=== PATIENT | male | born 1980 | race Caucasian/White ===

== ENCOUNTER 2021-02-25 09:37 | Inpatient (IN) | payer MEDICAID ==
[2021-02-25] VITALS (7 sets, daily range): BP systolic 132–149; BP diastolic 77–105
[~2021-02-25] VITALS: Ht 177.8 cm; Wt 89.8 kg
[2021-02-25] MEDS ORDERED: LORazepam 1 MG TABLET PO ONE (10:00)
[2021-02-25 10:10] LABS: BASOPHILS % (AUTO) 0.5 % (0.0-2.0); EOSINOPHILS % (AUTO) 3.1 % (1.0-6.0); HEMATOCRIT 47.8 % (41-53); HEMOGLOBIN 16.2 g/dL (13.5-17.5); LYMPHOCYTES # (AUTO) 1.9 K/uL (1.0-4.8); LYMPHOCYTES % (AUTO) 21.3 % (22.0-44.0); MEAN CORPUSCULAR HEMOGLOBIN 31.7 pg (26.0-34.0); MEAN CORPUSCULAR VOLUME 93 fL (80-100); MONOCYTES # (AUTO) 0.7 K/uL (0.1-1.0); MONOCYTES % (AUTO) 7.9 % (2.0-9.0); NEUTROPHILS # (AUTO) 6.1 K/uL (1.8-7.7); NEUTROPHILS % (AUTO) 67.2 % (40.0-70.0); PLATELET COUNT (AUTO) 272 K/uL (150-450); RED BLOOD CELL COUNT(AUTO) 5.13 MIL/uL (4.50-5.90); RED CELL DISTRIBUTION WIDTH 14.6 % (11.5-14.5)
[2021-02-25 10:16] LABS: COVID AG,FIA SOURCE NASOPHARYNGEAL
[2021-02-25 10:25] LABS: ANION GAP 13 mmol/L (8-16); CALCIUM, TOTAL 8.9 mg/dL (8.8-10.5); CARBON DIOXIDE 24 mmol/L (22-29); CHLORIDE 104 mmol/L (98-107); CREATININE 0.66 mg/dL (0.60-1.30); GLOMERULAR FILTR. RATE CALC > 60 mL/min (>60); GLUCOSE,RANDOM 115 mg/dL (70-110); POTASSIUM 3.8 mmol/L (3.5-5.1); SODIUM SERUM 141 mmol/L (136-145); UREA NITROGEN, BLOOD 7 mg/dL (7-18)
[2021-02-25 10:31] LABS: ALBUMIN 3.8 g/dL (3.4-5.0); ASPARTATE AMINOTRANSFERASE 44 U/L (15-37); BILIRUBIN,TOTAL 0.5 mg/dL (0.1-1.0)
[2021-02-25 10:46] LABS: ALANINE AMINOTRANSFERASE 112 U/L (12-78); ALKALINE PHOSPHATASE 99 U/L (46-116); TOTAL PROTEIN, SERUM 8.9 g/dL (6.4-8.2)
[2021-02-25] MEDS ORDERED: ZOLPIDEM TARTRATE 10 MG TABLET PO PRN (11:45)
[2021-02-25] MEDS ORDERED: LOPERAMIDE HCL 2 MG CAPSULE PO PRN (11:45)
[2021-02-25] MEDS ORDERED: CYANOCOBALAMIN 1,000 MCG/ML VIAL IM ONE (11:45)
[2021-02-25] MEDS ORDERED: GuaiFENesin/D-METHORPHAN [SUGAR-FREE] 200-20MG/10 ML SYRUP UDCUP PO PRN (11:45)
[2021-02-25] MEDS: FOLIC ACID 1 MG TABLET PO SCH (12:10)
[2021-02-25] MEDS: MULTIVITAMINS WITH MINERALS, THERAPEUTIC TABLET PO SCH (12:10)
[2021-02-25 13:26] LABS: AMPHET/METH SCREEN,URINE POSITIVE (NEGATIVE); BARBITURATE SCREEN, URINE NEGATIVE (NEGATIVE); BENZODIAZEPINES SCREEN,URINE NEGATIVE (NEGATIVE); CANNABINOID SCREEN,URINE POSITIVE (NEGATIVE); COCAINE SCREEN,URINE NEGATIVE (NEGATIVE); METHADONE SCREEN, URINE NEGATIVE (NEGATIVE); OPIATE SCREEN,URINE NEGATIVE (NEGATIVE)
[2021-02-25 13:27] LABS: PHENCYCLIDINE SCREEN,URINE NEGATIVE (NEGATIVE)
[2021-02-25] MEDS ORDERED: INFLUENZA VIRUS VACCINE QVS 2021-22 (6MO+)/PF 60 MCG/0.5 ML SYRINGE IM. ONE (15:00)
[2021-02-25] MEDS: THIAMINE 100 MG TABLET PO SCH (16:01)
[2021-02-25] MEDS: LORazepam 2 MG TABLET PO PRN ×3 (16:22→22:10)
[2021-02-26 01:30] VITALS: BP 133/91
[2021-02-26 05:30] VITALS: BP 131/84
[2021-02-26] MEDS ORDERED: LORazepam 2 MG TABLET PO PRN (07:00)
[2021-02-26] MEDS: LORazepam 2 MG TABLET PO SCH ×4 (09:06→20:58)
[2021-02-26] MEDS: FOLIC ACID 1 MG TABLET PO SCH (09:06)
[2021-02-26] MEDS: THIAMINE 100 MG TABLET PO SCH ×2 (09:06→16:54)
[2021-02-26] MEDS: MULTIVITAMINS WITH MINERALS, THERAPEUTIC TABLET PO SCH (09:12)
[2021-02-26 09:30] VITALS: BP 113/69
[2021-02-26] MEDS: HydrOXYzine PAMOATE 50 MG CAPSULE PO PRN (09:44)
[2021-02-26] MEDS: HALOPERIDOL 5 MG TABLET PO PRN ×2 (09:44→20:58)
[2021-02-26] MEDS ORDERED: ALBUTEROL SULFATE HFA 90 MCG/PUFF 8 GM INHALER IH PRN (10:45)
[2021-02-26] MEDS ORDERED: ACETAMINOPHEN 325 MG TABLET PO PRN (10:45)
[2021-02-26] MEDS ORDERED: PETROLATUM,WHITE 28 GM JELLY TP PRN (10:45)
[2021-02-26] MEDS ORDERED: IBUPROFEN 400 MG TABLET PO PRN (10:45)
[2021-02-26] MEDS ORDERED: DOCUSATE SODIUM 100 MG CAPSULE PO PRN (10:45)
[2021-02-26] MEDS ORDERED: CloNIDine HCL 0.1 MG TABLET PO PRN (10:45)
[2021-02-26] MEDS ORDERED: ONDANSETRON HCL 4 MG TABLET PO PRN (10:45)
[2021-02-26] MEDS ORDERED: GuaiFENesin/D-METHORPHAN [SUGAR-FREE] 200-20MG/10 ML SYRUP UDCUP PO PRN (10:45)
[2021-02-26] MEDS ORDERED: LOPERAMIDE HCL 2 MG CAPSULE PO PRN (10:45)
[2021-02-26] MEDS ORDERED: MAGNESIUM HYDROXIDE SUSPENSION 30 ML UDCUP PO PRN (10:45)
[2021-02-26] MEDS ORDERED: NICOTINE 14 MG/24 HOUR PATCH TD PRN (10:45)
[2021-02-26] MEDS ORDERED: MAG HYDROX/AL HYDROX/SIMETH ES 30 ML SUSPENSION UDCUP PO PRN (10:45)
[2021-02-26 12:36] LABS: CHOL/HDL RATIO 3.8 (4.2-7.3)
[2021-02-26 17:30] VITALS: BP 132/75
[2021-02-26 17:35] VITALS: BP 137/93
[2021-02-26] MEDS: RisperiDONE 1 MG TABLET PO SCH (20:58)
[2021-02-26 21:30] VITALS: BP 125/76
[2021-02-27 04:15] VITALS: BP 107/72
[2021-02-27] MEDS: THIAMINE 100 MG TABLET PO SCH ×2 (08:15→17:29)
[2021-02-27] MEDS: LORazepam 2 MG TABLET PO SCH ×4 (08:15→20:46)
[2021-02-27] MEDS: MULTIVITAMINS WITH MINERALS, THERAPEUTIC TABLET PO SCH (08:15)
[2021-02-27] MEDS: FOLIC ACID 1 MG TABLET PO SCH (08:15)
[2021-02-27] MEDS: SERTRALINE HCL 50 MG TABLET PO SCH (08:16)
[2021-02-27 08:55] VITALS: BP 140/83
[2021-02-27 16:44] VITALS: BP 121/70
[2021-02-27 16:55] VITALS: BP 121/70
[2021-02-27 16:56] VITALS: BP 121/70
[2021-02-27] MEDS: HydrOXYzine PAMOATE 50 MG CAPSULE PO PRN (17:29)
[2021-02-27] MEDS: RisperiDONE 1 MG TABLET PO SCH (20:46)
[2021-02-27] MEDS: HALOPERIDOL 5 MG TABLET PO PRN (20:47)
[2021-02-28 05:48] VITALS: BP 130/87
[2021-02-28] MEDS ORDERED: LORazepam 1 MG TABLET PO PRN (07:00)
[2021-02-28] MEDS: THIAMINE 100 MG TABLET PO SCH (08:50)
[2021-02-28] MEDS: FOLIC ACID 1 MG TABLET PO SCH (08:51)
[2021-02-28] MEDS: MULTIVITAMINS WITH MINERALS, THERAPEUTIC TABLET PO SCH (08:51)
[2021-02-28] MEDS: SERTRALINE HCL 50 MG TABLET PO SCH (08:51)
[2021-02-28] MEDS: LORazepam 1 MG TABLET PO SCH ×2 (08:54→12:51)
[2021-02-28 10:41] VITALS: BP 123/83
[2021-02-28 10:44] VITALS: BP 123/83
[2021-02-28] MEDS ORDERED: SERT-439 PO (11:40)
[2021-02-28] MEDS ORDERED: RISP1TAB89 PO (11:40)
[2021-03-01] MEDS ORDERED: LORazepam 1 MG TABLET PO PRN (07:00)
== END 2021-02-28 13:45 | disposition home or self-care (01) | DRG 751 ==
LOC: EMS 09:42 → 3EI 13:12
PROVIDERS: ADMIT Psychiatry & Neurology Psychiatry; ATTEND Psychiatry & Neurology Psychiatry
DX: F33.3 Major depressive disorder, recurrent, severe with psychotic symptoms (principal); R45.851 Suicidal ideations; K70.10 Alcoholic hepatitis without ascites; E78.5 Hyperlipidemia, unspecified; F10.139 Alcohol abuse with withdrawal, unspecified; F12.10 Cannabis abuse, uncomplicated; F15.10 Other stimulant abuse, uncomplicated; R74.01 Elevation of levels of liver transaminase levels; F19.10 Other psychoactive substance abuse, uncomplicated; Z20.822 Contact with and (suspected) exposure to COVID-19; I10 Essential (primary) hypertension; Y90.4 Blood alcohol level of 80-99 mg/100 ml; F17.210 Nicotine dependence, cigarettes, uncomplicated; Z91.51 Personal history of suicidal behavior; Z79.899 Other long term (current) drug therapy
CPT/HCPCS: 80053; 80061; 85025; 99285; G0480; J3420